=== PATIENT | female | born 1980 ===

== ENCOUNTER 2019-06-13 09:34 | Outpatient (CLI) | payer OTHER | END 2019-06-13 09:59 | disposition home or self-care (01) | LOC: SONOGRAMA 09:34 → MAMO-SONO 10:15 | DX: N84.0 Polyp of corpus uteri (principal) ==

== ENCOUNTER 2024-05-10 10:39 | Day surgery (SDC) | payer OTHER ==
[2024-05-10] MEDS ORDERED: CEFAZOLIN SODIUM 1,000 MG VIAL ONE (13:44)
[2024-05-10] MEDS ORDERED: POVIDONE-IODINE 118 ML BOTT TOP ONE (14:52)
[2024-05-10] MEDS ORDERED: KETOROLAC TROMETHAMINE 60 MG VIAL IM STA (17:28)
[2024-05-10] MEDS ORDERED: RINGERS SOLUTION,LACTATED 1,000 ML IV SCH (17:30)
[2024-05-10] MEDS ORDERED: IBU400 MG PO (17:31)
[2024-05-10] MEDS ORDERED: ZITHROMAX500 MG PO (17:31)
== END 2024-05-10 21:55 | disposition home or self-care (01) ==
LOC: CIR.AMB 10:39
PROVIDERS: ATTEND Obstetrics & Gynecology
DX: N84.0 Polyp of corpus uteri (principal); N92.0 Excessive and frequent menstruation with regular cycle